=== PATIENT | female | born 1965 | race Caucasian/White ===

== ENCOUNTER 2020-12-17 20:45 | Emergency (ER) | payer OTHER ==
[~2020-12-17] VITALS: Ht 152.4 cm; Wt 104.9 kg
[2020-12-17] MEDS ORDERED: OXYcodone/APAP 5/325MG TABLET ONE (21:43)
--- NOTE | 2020-12-17 21:46 | NUR ---
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
[2020-12-17] MEDS ORDERED: OXYcodone/APAP 5/325MG TABLET PO ONE (22:00)
--- NOTE | 2020-12-17 22:21 | NUR ---
ALL RESULTS ARE BACK AT THIS TIME. CHART UP FOR RECHECK.
--- NOTE | 2020-12-17 22:41 | NUR ---
PT STATES SHE HAS CRUTCHES IN THE CAR. PT FRIEND IN PARKING LOT TO DRIVE PT HOME.
--- NOTE | 2020-12-17 22:42 | NUR ---
STIRRUP SPLINT PLACED TO RIGHT FOOT
== END 2020-12-17 22:44 | disposition home or self-care (01) ==
LOC: ED 22:30
DX: S82.62XA Displaced fracture of lateral malleolus of left fibula, initial encounter for closed fracture (principal); J45.909 Unspecified asthma, uncomplicated; I10 Essential (primary) hypertension; Z90.710 Acquired absence of both cervix and uterus; W01.0XXA Fall on same level from slipping, tripping and stumbling without subsequent striking against object, initial encounter; Y93.89 Activity, other specified; Y92.410 Unspecified street and highway as the place of occurrence of the external cause; Y99.8 Other external cause status
CPT/HCPCS: 99283